=== PATIENT | female | born 1985 | race Caucasian/White ===

== ENCOUNTER 2024-10-30 10:23 | Emergency (ER) | payer OTHER, SELFPAY ==
--- NOTE | ~2024-10-30 | CT_ITS ---
History: Dizziness and headache PROCEDURE: CT head without contrast. COMPARISON: None TECHNIQUE: Axial imaging of the head performed from the skull base to the vertex without IV contrast. Sagittal a nd coronal reformations obtained. DLP: 605 mGy-cm FINDINGS: The ventricles are normal in size, shape and position. There is no mass, mass effect or midline shift. There is no abnormal extra-axial fluid collection or intracranial hemorrhage. Near-complete opacification of the bilateral maxillary sinuses. Mucoperiosteal thickening within the sphenoid sinuses. Mucoperiosteal thickening within the frontoethmoidal recess is also noted. The mastoid air cells are well aerated. No acute displaced fractures within the overlying cranium. Impression: No acute intracranial hemorrhage or suspicious mass effect. Inflammatory sinus disease Reviewed, dictated and finalized at location A. Impression: No acute intracranial hemorrhage or suspicious mass effect. Inflammatory sinus disease
--- NOTE | ~2024-10-30 | XR_ITS ---
Clinical Indication: Shortness of breath PA and lateral views of the chest: Comparison: None Findings: The lungs are clear, without evidence of focal consolidation or pleural effusion. Cardiome diastinal silhouette is within normal limits. Bones and soft tissues are unremarkable. Impression: Normal chest. Reviewed, dictated and finalized at [facility]. Impression: Normal chest.
--- NOTE | 2024-10-30 10:28 | ECG_ITS ---
Test Date: 2024-10-30 10:42:07 Measurements Intervals [place] Rate: 78 P: -5 [place]: 123 QRS: 18 QRSD: 80 T: 21 QT: 358 QTc: 410 Interpretive Statements SINUS RHYTHM No previous ECG available for comparison Electronically Signed On 11-01-2024 13:47:50 CDT by Samuel Ley D.O
[2024-10-30 10:35] VITALS: BP 170/102; PULSE 84; RESP 20; TEMP 36.6; O2SAT 100
[2024-10-30 12:31] VITALS: BP 152/100; PULSE 82; RESP 14; O2SAT 100
[2024-10-30 12:45] VITALS: PULSE 96; RESP 15; O2SAT 100
[2024-10-30 12:46] VITALS: BP 152/100; PULSE 87; RESP 24; O2SAT 100
[2024-10-30 13:00] VITALS: PULSE 85; RESP 14; O2SAT 100
[2024-10-30 13:02] VITALS: BP 140/90; PULSE 97; RESP 15; O2SAT 100
[2024-10-30 13:09] LABS: Basophils Percent Auto 0.3 % (0.2-1.2); Eosinophils Absolute Auto 0.1 K/mm3 (0-0.3); Eosinophils Percent Auto 0.7 % (0-4.4); Hematocrit 37.9 % (37.0-47.0); Hemoglobin 12.7 g/dL (12.0-15.0); Immature Granulocyte Absolute 0.02 K/mm3 (0.00-0.031); Immature Granulocyte Percent A 0.2 % (0-0.5); Lymphocytes Percent Auto 26.9 % (18.3-44.2); Mean Corpuscular HGB Conc 33.5 g/dl (32-36); Mean Corpuscular Hemoglobin 29.6 pg (26-34); Mean Corpuscular Volume 88.3 fl (80-100); Mean Platelet Volume 8.6 fl (7.4-10.4); Monocytes Absolute Auto 0.5 K/mm3 (0.1-0.6); Monocytes Percent Auto 4.7 % (2.6-8.5); Neutrophils Absolute Auto 6.7 K/mm3 (1.3-6.7); Neutrophils Percent Auto 67.2 % (45.5-73.1); Platelet Count Result 423 k/mm3 (150-375); Red Blood Count 4.29 M/mm3 (4.2-5.4); Red Cell Distribution Width 12.7 % (11.5-14.5)
[2024-10-30 13:24] LABS: Alanine Aminotransferase 17 U/L (6-35); Albumin Level 4.3 g/dL (3.5-5.1); Alkaline Phosphatase 97 U/L (38-126); Anion Gap 12 mmol/L (4-12); Aspartate Amino Transferase 19 U/L (14-36); Bilirubin,Total 0.3 mg/dL (0.2-1.3); Blood Urea Nitrogen 12 mg/dL (7-17); Carbon Dioxide 23 mmol/L (22-30); Chloride 103 mmol/L (98-107); Estimated CRCL calculation 123 ml/min; Estimated Glomerular Filt Rate > 60; Glucose 87 mg/dL (65-110); Potassium 4.1 mmol/L (3.4-5.0); Sodium 138 mmol/L (137-145)
--- NOTE | 2024-10-30 13:37 | ED_ITS ---
HPI - Recheck/Abnormal Lab/Rx General Chief Complaint: Recheck/Abnormal Lab/Rx Stated Complaint: htn, SOB, dizziness Time Seen by Provider: 10/30/24 12:44 History of Present Illness HPI narrative: 39-year-old otherwise healthy female presenting to the emergency department for evaluation of hypertension, dizziness, shortness of breath and intermittent headache. Patient states her symptoms have been going on for last 3-4 months. She went to her primary care provider referred to an oncologist for thrombocytosis as well as a moving picture producer for abnormal appearing EKG. She was started on losartan last month and then switch to metoprolol as she was still having some tachycardia with her high blood pressure. 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 Presently she is endorsing a mild headache but no nausea, vomiting, chest pain, shortness a breath. No abdominal pain or vision changes. She states that she thinks her blood pressure is causing her symptoms. Has a cardiology appointment next month. Patient did see her oncologist and currently getting workup for thrombocytosis. No history of blood clot disorder. Related Data Allergies Allergy/AdvReac Type Severity Reaction Status Date / Time No Known Allergies Allergy Verified 10/30/24 10:25 Review of Systems 2 Review of Systems: As reviewed above in HPI Exam 2 Narrative: GENERAL: [Well-appearing, well-nourished, and in no acute distress.] HEAD: [Normocephalic, atraumatic.] EYES: [PERRLA and EOMI.] ENT: Nares clear, no rhinorrhea or epistaxis. Mucous membranes moist. NECK: Supple. CHEST: [Clear to auscultation. No respiratory distress.] HEART: [Regular rate and rhythm]. No murmur heard. [Normal peripheral pulses.] ABDOMEN: [Soft, nondistended], [nontender], [No rigidity or guarding] EXTREMITIES: Normal range of motion. [No edema.] SKIN: Warm, dry, no rash. NEURO: [No focal deficits]. Alert and oriented [x3.] PSYCH: [Normal mood and affect.] Course Vital Signs Vital signs: Vital Signs Temperature 36.6 C 10/30/24 10:35 Pulse Rate 84 10/30/24 10:35 Respiratory Rate 20 10/30/24 10:35 Blood Pressure 170/102 H 10/30/24 10:35 Pulse Oximetry 100 10/30/24 10:35 Oxygen Delivery Room Air 10/30/24 10:35 Temperature 36.6 C 10/30/24 10:35 Pulse Rate 97 10/30/24 13:02 Respiratory Rate 15 10/30/24 13:02 Blood Pressure 140/90 10/30/24 13:02 Pulse Oximetry 100 10/30/24 13:02 Oxygen Delivery Room Air 10/30/24 10:35 MDM - Recheck/Abnormal Lab/Rx MDM Narrative Medical decision making narrative: 39-year-old female with history of hypertension presenting to the emergency room for evaluation of elevated blood pressure, headache, intermittent dizziness and shortness of breath for last 3-4 months. Recently switched from losartan to metoprolol for blood pressure control. Presently patient endorse a mild headache but otherwise asymptomatic. She has normal appearing vital signs without any significant blood pressure concerns, blood pressure 140/90, no tachycardia, fever or hypoxia. 2+ symmetric pulses, unremarkable neurological examination. Patient presently appears to have asymptomatic hypertension however given her historical features and intermittent headache for last few months a head CT was warranted to see if there is any kind of occult process such as stroke or bleed. Will obtain laboratory studies including CBC, CMP, EKG and chest x-ray to assess for end-organ damage. If there is no concerning features or findings patient could be safely followed up outpatient with regular primary care provider and moving picture producer. Patient's workup was reassuring. No leukocytosis or anemia. Mildly elevated platelet count which patient is already aware of. Normal renal function. Normal electrolytes, normal LFTs. Normal glucose. Chest x-ray without any findings. CT head without any acute intracranial process. EKG with no ischemia or ectopy. Patient is currently asymptomatic from hypertension and can be safely discharged home at this time. She will follow-up with her regular outpatient doctors. Medical Records Attestation: I reviewed the patient's medical records. Lab Data Attestation: I reviewed the patient's lab results. 10/30/24 12:59 10/30/24 12:59 Labs: Lab Results 10/30/24 Range/Units 12:59 WBC 10.0 (4.5-10.0) K/mm3 RBC 4.29 (4.2-5.4) M/mm3 Hgb 12.7 (12.0-15.0) g/dL Hct 37.9 (37.0-47.0) % MCV 88.3 (80-100) fl MCH 29.6 (26-34) pg MCHC 33.5 (32-36) g/dl RDW 12.7 (11.5-14.5) % Plt Count 423 H (150-375) k/mm3 MPV 8.6 (7.4-10.4) fl Immature Gran % (Auto) 0.2 (0-0.5) % Neut % (Auto) 67.2 (45.5-73.1) % Lymph % (Auto) 26.9 (18.3-44.2) % [place] % (Auto) 4.7 (2.6-8.5) % Eos % (Auto) 0.7 (0-4.4) % Baso % (Auto) 0.3 (0.2-1.2) % Lymph # (Auto) 2.70 (0.9-3.2) K/mm3 [place] # (Auto) 0.5 (0.1-0.6) K/mm3 Eos # (Auto) 0.1 (0-0.3) K/mm3 Baso # (Auto) 0.0 (0.0-0.1) K/mm3 Abs Immat Gran (auto) 0.02 (0.00-0.031) K/mm3 Absolute Neuts (auto) 6.7 (1.3-6.7) K/mm3 Absolute Nucleated RBC 0.000 (0.0-0.012) K/mm3 Nucleated RBC % 0.0 (0.0-0.2) % Sodium 138 (137-145) mmol/L Potassium 4.1 (3.4-5.0) mmol/L Chloride 103 (98-107) mmol/L Carbon Dioxide 23 (22-30) mmol/L Anion Gap 12 (4-12) mmol/L BUN 12 (7-17) mg/dL Creatinine 0.60 L (0.7-1.0) mg/dL Estim Creat Clear Calc 123 ml/min Estimated GFR > 60 (59 - ) Glucose 87 (65-110) mg/dL Calcium 9.0 (8.4-10.2) mg/dL Total Bilirubin 0.3 (0.2-1.3) mg/dL AST 19 (14-36) U/L ALT 17 (6-35) U/L Alkaline Phosphatase 97 (38-126) U/L Total Protein 8.0 (6.3-8.2) g/dL Albumin 4.3 (3.5-5.1) g/dL ECG Data EKG #1: Attestation: I personally reviewed and interpreted this ECG as follows: ECG completion date: 10/30/24 ECG completion time: 10:42 Prior ECG tracings: not available for review Interpretation: Regular rate, regular rhythm. Regular axis. QTC 410, QRS 80, [place] interval 123. Rate of 78 beats per minute. No ST segment elevations, depressions or inversions. Otherwise unremarkable appearing normal sinus rhythm EKG. No previous EKG for comparison. Discharge Plan Discharge Clinical Impression: Asymptomatic hypertension, Elevated platelet count Patient Disposition: Home, Self-Care Condition: Stable Instructions: Antibiotic Form, Hypertension (ED) Additional Instructions: Your blood pressure is not causing any signs of organ damage, your laboratory studies are all normal aside from your mildly elevated platelets of 423, not significant elevated or concerning. Head CT without any acute findings or changes. Normal electrolytes, normal EKG. Call your regular doctor for close outpatient appointment. Your medications may need to be adjusted to treat her blood pressure but no acute emergencies today. Return with any new concerns at any time. Patient Language: Armenian Follow-up/Referrals: [facility] [Primary Care Provider] - Time of Disposition: 16:20
--- OUTSIDE RECORDS SUMMARY | 2024-10-30 14:00 | XMS_ITS | Encounter Summary ---
Author Organization [facility] Healthcare Address [address] [place] [address] Care Team Providers Care Environmental Health Inspector Name Role Phone Darleen Donahue CENTRAL CONTROL ROOM OPERATOR Primary Care Provider Reason for Visit * Reason Onset Date Comments head fogginess 09/04/2024 Encounter Details Date Type Department Care Team (Late st Contact Info) Description 09/04/2024 Nurse Triage [facility] Primary Care at [address] [id number] Darleen Donahue, CENTRAL CONTROL ROOM OPERATOR [address] [place] [id number] Social History Tobacco Use Types Packs/Day Years Used Date Smoking Tobacco: Never Cigarettes Smokeless Tobacco: Never Alcohol Use Standard Drinks/Week Comments Yes 0 (1 standard drink = 0.6 oz pur e alcohol) socially AUDIT-C Answer Date Recorded Frequency of Alcohol Consumption Monthly or less 03/16/2019 Average Number of Drinks Not on file 019 Frequency of Binge Drinking Not on file 02/17 PHQ-2 Answer Date Recorded PHQ-2 Total Score (If total score is 3 or more points, staff should administer the PHQ-9) 0 07/10/2024 Comments No Sex and Gender Information Value Date Recorded Sex Assigned at Not on file Legal Sex Female 7:35 PM [employer] Gender Identity Not on file Sexual Orientation Straight 01/18/2020 8: 14 AM CDT 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 It's possible that the increase is causingthese symptoms, but the level of depression she is experiencing could also be causing these symptoms. What we could do is slow down the ramp up. I called in citalopram 10mg tablet for 14 days. Have her cut her 40mg tablet in half. That would be 20mg. Add the 10mg tablet and so she is now taking 30mg for 14 days. After that increase back to 40mg daily. Make sure she understanding to cut the 40mg in half. I had talked to her about fmla if she needs. [employer] * Telephone Encounter - Mireille Kuhn, RN - 09/04/2024 12:41 PM [employer] Pt reported feeling foggy in head, headache 3/10, cannot focus, lightheaded at times improved with eating. Pt stated she has had this feeling once in the past while on depression meds that were changed while she was in high school. Recently had a medication adjustment 2 days ago.. Denied chest pain, sob, nausea, vomiting, diarrhea, bloody stools or black stools, fever, chills, sweats, weakness, numbness, or head injury. Pt was seen in the office 2 days ago and wants above reported to PCP for next steps. Home care/call back instructions given. Pt verbalized understanding. Routed to PCP's clinical group. Reason for Disposition MILD - MODERATE headache present > 3 days (72 hours) Protocols used: [id number] [employer] * Telephone Encounter - Mireille Kuhn, RN - 09/04/2024 12:26 PM [employer] Regarding: Lightheaded, Foggy in head, cannot focus ----- Message from Arely Mclaughlin sent at 09/04/2024 12:24 PM [employer] ----- Symptom Based Call Chief Complaint(s): Lightheaded, Foggy in head, cannot focus Duration: today What type of symptom(s) is the patient experiencing? Red Flag. Is the patient concerned they are experiencing a medical emergency requiring an ambulance? No Additional Comments: Tried to eat but it didn't hep the symptoms. Does message need to be routed? Yes-Action Needed [employer] documented in this encounter Plan of Treatment Not on file documented as of this encounter Visit Diagnoses Not on filedocumented in this encounter Care Teams Environmental Health Inspector Relationship Specialty Start Date End Date Darleen Donahue NP PCP - General Family Medicine 09/25/21 documented as of this encounter
--- OUTSIDE RECORDS SUMMARY | 2024-10-30 14:00 | XMS_ITS | Clinical Summary ---
Author Organization [facility] Address [address] [place] [address] Phone Care Team Providers Care Security Intern Name Role Phone Unavailable Primary Care Provider Unavailabl e Social History Tobacco Use Types Packs/Day Years Used Date Smoking Tobacco: Never Assessed Comments Unknown Sex and Gender Information Value Date Recorded Sex Assigned at Not on file Legal Sex Female 11:25 AM CDT Gender Identity Not on file Sexual Orientation Not on file Plan of Treatment Not on file
--- OUTSIDE RECORDS SUMMARY | 2024-10-30 14:00 | XMS_ITS | Referral Summary ---
Author Organization [facility] [address] Address [address] [place] [address] Care Team Providers Care Deck Scaler Name Role Phone Darleen Donahue NP Primary Care Provider [phone] Encounters Date Type Department Care Team Description 10/30/2024 Results Follow-Up [facility] [address] [place] [address] Office [facility] [address] [place] [address] Keely Cisse RN 10/28/2024 12:30 PM CDT Lab [address] [place] [address] Thrombocytosis (Primary Dx); Other fatigue; Thrombocythemia 10/28/2024 1:00 PM CDT Office Visit [facility] [address] [place] [address] [address] Jorgito Schwartz MD Thrombocythemia (Primary Dx); Thrombocytosis; Other fatigue 10/19/2024 3:30 PM AUXILIARY OPERATOR Office Visit [facility] Primary Care at [address] [phone] Darleen Donahue NP Tachycardia (Primary Dx); Short ME-normal QRS complex syndrome; Hypertension, essential; Depression with anxiety; Thrombocythemia 10/15/2024 Telephone [facility] Primary Care at [address] [phone] Darleen Donahue NP Med Refill 10/14/2024 4:48 PM AUXILIARY OPERATOR - 10/14/2024 6:04 PM AUXILIARY OPERATOR Emergency [facility] Emergency Department [address] [place] [id number] Hypertension, unspecified type (Primary Dx) Discharge Disposition: Discharge to home or self care 10/14/2024 Nurse Triage [facility] Primary Care at [address] [phone] Darleen Donahue, PIZZA BAKER 10/12/2024 Nurse Triage [facility] Primary Care at [address] [phone] Darleen Donahue, PIZZA BAKER 10/08/2024 12:30 PM AUXILIARY OPERATOR Office Visit [facility] Primary Care at [address] [phone] Darleen Donahue NP Depression with anxiety (Primary Dx); Hypertension, essential; Thrombocytosis 09/04/2024 Nurse Triage [facility] Primary Care at [address] [phone] Darleen Donahue NP 09/02/2024 3:18 PM AUXILIARY OPERATOR - 09/02/2024 11:59 PM AUXILIARY OPERATOR Hospital Encounter [address] [address] Thyroid disorder screen; Lipid screening; Screening for metabolic disorder; Screening for deficiency anemia; Screening for diabetes mellitus Discharge Disposition: Discharge to home or self care 09/02/2024 3:15 PM AUXILIARY OPERATOR Lab [facility] Outpatient Lab at [address] [phone] Healthcare maintenance (Primary Dx); Morbid obesity with BMI of 40.0-44.9, adult (HCC) 09/02/2024 Orders Only [facility] Primary Care at [address] [phone] Darleen Donahue NP Screening for deficiency anemia (Primary Dx); Screening for metabolic disorder; Lipid screening; Thyroid disorder screen; Screening for diabetes mellitus 09/02/2024 Telephone [facility] Primary Care at [address] [phone] Darleen Donahue NP Medical Question/Miscellaneous 09/02/2024 4:00 PM AUXILIARY OPERATOR Office Visit [facility] Primary Care at [address] [phone] Darleen Donahue NP Annual physical exam (Primary Dx); Depression with anxiety; Elevated blood-pressure reading, without diagnosis of hypertension; Class 3 severe obesity due to excess calories with serious comorbidity and body mass index (BMI) of 45.0 to 49.9 in adult (HCC) 08/04/2024 Telephone [facility] [address] [place] [address] [address], [place] [address] Sandra Abarca MA Request For Order(s) from Last 3 Months Allergies No known active allergies Medications LORazepam (ATIVAN) 0.5 mg tablet Take 1 tablet (0.5 mg total) by mouth every 8 (eight) hours as needed for anxiety 30 tablet 1 4 Active norgestimate-et hinyl estradioL (Estarylla) 0.25-35 mg-mcg per tablet Take 1 tablet by mouth daily 84 tablet 3 4 Active citalopram (CeleXA) 40 mg tabletIndicatio ns:major depressive disorder Take 1 tablet (40 mg total) by mouth daily 90 tablet 1 5 Active triamcinolone (KENALOG) 0.1 % ointment Apply topically 2 (two) times a day 30 g 5 Active meclizine (ANTIVERT) 25 mg tablet Take 1 tablet (25 mg total) by mouth 3 (three) times a day as needed for dizziness 30 tablet 5 Active metoprolol XL (TOPROL-XL) 25 mg extended release tablet Take 1 tablet (25 mg total) by mouth daily 30 tablet 1 5 10/20/19 26 Active citalopram (CeleXA) 10 mg tablet Take 1 tablet (10 mg total) by mouth daily Take daily as directed per office instructions. 14 tablet 5 10/08/19 25 Discontinu ed(Therapy completed) losartan (COZAAR) 25 mg tablet Take 1 tablet (25 mg total) by mouth daily 30 tablet 11 5 10/08/19 25 Discontinu ed(Reorder ) losartan (COZAAR) 25 mg tablet Take 1 tablet (25 mg total) by mouth daily 90 tablet 1 5 10/20/19 25 Discontinu ed(Therapy completed) Active Problems Problem Noted Date Diagnosed Date Hypertension, essential 10/08/2024 Assessment & Plan (10/19/2024 5:16 PM AUXILIARY OPERATOR): ECG 12 lead Date/Time: 10/19/2024 5:13 PM Performed by: Darleen Donahue NP Authorized by: Darleen Donahue NP Comparison: not compared with previous ECG Previous ECG: no previous ECG available Rhythm: sinus rhythm Ectopy: infrequent PVCs Ectopy comments: pac Rate: tachycardic BPM: 101 QRS axis: normal ST Segments: ST segments normal T Waves: T waves normal Clinical impression: abnormal ECG Comments: Short ME syndrome Discontinue losartan. Start metoprolol xl once daily. Discussed EKG. Will refer to cardiology. She will monitor blood pressure and send me updates. Assessment & Plan (10/08/2024 1:00 PM AUXILIARY OPERATOR): Start losartan 25mg Thrombocythemia 01/31/2023 Assessment & Plan (10/19/2024 5:18 PM AUXILIARY OPERATOR): Has new patient appointment with hematology scheduled this month Assessment & Plan (01/31/2023 1:26 PM CDT): History of elevated platelets. Will repeat a CBC today. Depression with anxiety 06/30/2020 Assessment & Plan (10/19/2024 5:17 PM AUXILIARY OPERATOR): Believes this is well controlled. Continue citalopram and lorazepam prn. She may increase lorazepam short term while having a little more stress. Assessment & Plan (10/08/2024 1:00 PM AUXILIARY OPERATOR): Improved. Continue citalopram 40mg Assessment & Plan (09/06/2024 7:50 PM AUXILIARY OPERATOR): Plan was to do increase citalopram to 40 mg once daily. Patient was agreeable to plan of care. She called back 2 days later and was concerned about a couple of side effects with the increase. I gave her 10 mg of citalopram and had her cut the 40 mg tablets in half and had her increase the citalopram to 30 mg for 2 weeks and then will have her increase to 40 mg after that for a slower increase. Follow up 4-6 weeks Assessment & Plan (09/02/2023 3:41 PM AUXILIARY OPERATOR): Psychological condition is improving with treatment continue citalopram. Rarely uses lorazepam likes to keep on hand. Continue current treatment regimen. Regular aerobic exercise. Psychological condition will be reassessed 1 year . Assessment & Plan (01/31/2023 1:25 PM CDT): Depression is stable. Continue citalopram 20 mg once daily. May continue lorazepam p.r.n. anxiety. Will have her follow-up in 6 months, next August for physical Assessment & Plan (07/30/2022 6:50 PM AUXILIARY OPERATOR): Stable on current medication. Continue lorazepam prn and citalopram daily as ordered. May follow up in 6 months Assessment & Plan (01/29/2022 10:04 AM CDT): Stable on current medication. Continue citalopram as ordered. May follow up in 6 months Assessment & Plan (07/11/2021 9:45 AM AUXILIARY OPERATOR): Stable on current medication. Continue citalopram 20 mg daily and lorazepam p.r.n. as ordered. May follow up in 6 months Assessment & Plan (02/14/2021 8:52 AM CDT): Stable on current medication. Continue citalopram, lorazepam as ordered. May follow up in 6 months If sleep becomes more of an issues, then encouraged to call or come in to discuss Assessment & Plan (07/27/2020 3:21 PM AUXILIARY OPERATOR): Depression is improved. Will continue on citalopram 20 mg once daily. She has not used lorazepam but may use it p.r.n. for anxiety. Will have her follow-up in 6 months for recheck but encouraged to call in the interim if needed for any problems or concerns Assessment & Plan (07/03/2020 9:59 PM AUXILIARY OPERATOR): Discussed starting a medication and pt is agreeable. Will start Citalopram.. Discussed starting dose and titration to full dose, possible SE and time frame for expected results. Call if any suicidal thoughts or questions concerning SE. Do not abruptly stop medication without calling office. Also discussed adding lorazepam 0.5 mg b.i.d. p.r.n. for anxiety. Discussed when and how to use medications. Discussed this is a controlled substance. Follow up in 3-4 weeks for recheck and continuation of medications. Annual physical exam 06/30/2020 Assessment & Plan (09/06/2024 7:51 PM AUXILIARY OPERATOR): -Recommended: Healthy, prudent diet. Avoiding junk food/fast food. -30 minutes of exercise most days of the week. Increase to 45 minutes for weight loss. 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 , alternative cologuard not indicated -Influenza vaccine every year up to date and documented Up to date, see immunization history -F/u in 1 year for Annual PE or sooner if needed -Labs as ordered Assessment & Plan (09/02/2023 3:40 PM AUXILIARY OPERATOR): -Recommended: Healthy, prudent diet. Avoiding junk food/fast food. -30 minutes of exercise most days of the week. Increase to 45 minutes for weight loss. 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 , alternative cologuard not indicated -Influenza vaccine every year up to date and documented Up to date, see immunization history -F/u in 1 year for Annual PE or sooner if needed -Labs as ordered Assessment & Plan (07/30/2022 6:49 PM AUXILIARY OPERATOR): Patient Counseling: --Nutrition: Stressed importance of moderation in sodium/caffeine intake, saturated fat and cholesterol, caloric balance, sufficient intake of fresh fruits, vegetables, --Exercise: Stressed the importance of regular exercise. --Continue routine dental and vision visits --Immunizations reviewed and offered - utd -Routine labs/ screenings ordered- ordered. Assessment & Plan (07/11/2021 9:45 AM AUXILIARY OPERATOR): -Recommended: Healthy diet. Avoiding junk food/fast food. -30 minutes of exercise most days of the week. Increase to 45 minutes for weight loss. Immunizations: Up to date getting COVID booster later today increase physical activity, bring BP log to office visit, continue present plan, routine labs ordered, call if any problems Follow-up in 6 months. Assessment & Plan (07/03/2020 9:59 PM AUXILIARY OPERATOR): Labs as ordered. Will have her follow-up in 1 month Class 3 severe obesity due t o excess calories with serious comorbidity and body mass index (BMI) of 45.0 to 49.9 in adult 03/16/2019 Assessment & Plan (09/06/2024 7:50 PM AUXILIARY OPERATOR): BMI Follow-up includes: nutrition counseling and exercise counseling. Assessment & Plan (09/02/2023 3:40 PM AUXILIARY OPERATOR): Has started exercising again. BMI Follow-up includes: exercise counseling. Assessment & Plan (01/31/2023 1:26 PM CDT): BMI Follow-up includes: exercise counseling. Assessment & Plan (07/30/2022 6:50 PM AUXILIARY OPERATOR): BMI Follow-up includes: exercise counseling. Assessment & Plan (01/29/2022 10:04 AM CDT): BMI Follow-up includes: exercise counseling. Assessment & Plan (07/03/2020 9:59 PM AUXILIARY OPERATOR): BMI Follow-up includes: exercise counseling. Assessment & Plan (03/16/2019 9:14 PM CDT): Unchanged. Encouraged patient to decrease weight, increase daily exercise, and modify diet. Resolved Problems Problem Noted Date Diagnosed Date Resolved Date Elevated blood-pressure read ing, without diagnosis of hypertension 09/02/2024 10/19/2024 Assessment & Plan (09/06/2024 7:49 PM AUXILIARY OPERATOR): I asked her to monitor blood pressure outside of the office. We are going to have her return in 1 month for med recheck and will recheck blood pressure at that time as well Immunizations Immunization Administration Dates Next Due Influenza, Quadrivalent, Spl it, Preservative Free, Intramuscular 05/13/2023,07/19/2022 Influenza, Trivalent, Cell Culture-based MDCK, Preservative Free, Antibiotic Free, Intramuscular 08/09/2024 Influenza, Trivalent, IM (MDV) 06/23/2021 Influenza, Unspecified 05/13/2023,2020,06/30/2020(Defer red: Patient Refused) Moderna SARS-CoV-2 Monovalen t Vaccination (12+ YRS) 10/07/2020,09/08/2020 PPD TEST 07/21/2018 Pfizer SARS-CoV-2 Monovalent Vaccination (12+ Yrs) PURPLE 07/11/2021 Tdap 04/04/2014 Social History Tobacco Use Types Packs/Day Years Used Date Smoking Tobacco: Never Smokeless Tobacco: Never Tobacco Cessation:Counseling Given: Not Answered Alcohol Use Standard Drinks/Week Comments Yes 0 [...] staff should administer the PHQ-9) 0 07/10/2024 Personal Safety Answer Date Recorded Have you ever been in or are you currently in a harmful physical or emotional relationship or is someone making you feel afraid or unsafe? 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 Not on file Not on file Not on fi le Last Filed Vital Signs Vital Sign Reading Time Taken Comments Blood Pressure 140/82 10/28/2024 12:38 PM CDT Pulse 77 10/28/2024 12:38 PM CDT Temperature 36.3 C (97.3 F) 10/28/2024 12:38 PM CDT Respiratory Rate 20 10/28/2024 12:3 8 PM CDT Oxygen Saturation 96% 10/28/2024 12: 38 PM CDT Inhaled Oxygen Concentration - - Weight 109.2 kg (240 lb 12.8 oz) 2024 12:38 PM CDT Height 154.9 cm (5' 1 ) 10/28/2024 12:3 8 PM CDT Body Mass Index 45.5 10/28/2024 12:38 PM CDT Plan of Treatment Not on file Procedures Procedure Name Priority Date/Time Associated Diagnosis Comments ERYTHROCYTE SEDIMENTATION RATE Routine 10/28/2024 12:20 PM CDT Thrombocythemia Thrombocytosis Other fatigue FERRITIN Routine 10/28/2024 12:20 PM CDT Thrombocytosis Other fatigue IRON PROFILE W/ IBC Routine 10/28/2024 1 2:20 PM CDT Thrombocytosis Other fatigue CRP (ACUTE PHASE) Routine 10/28/2024 12: 20 PM CDT Thrombocytosis Other fatigue DIFFERENTIAL AUTO Routine 10/28/2024 12: 20 PM CDT Thrombocytosis CBC WITH AUTO DIFFERENTIAL Routine 10/28/2024 12:20 PM CDT Thrombocytosis ECG 12-LEAD Routine 10/19/2024 5:13 PM AUXILIARY OPERATOR Tachycardia CT HEAD WO CONTRAST ED 10/14/2024 2 :56 PM AUXILIARY OPERATOR EGFR STAT 10/14/2024 11:56 AM AUXILIARY OPERATOR DIFFERENTIAL AUTO STAT 10/14/2024 11: 56 AM AUXILIARY OPERATOR COMPREHENSIVE METABOLIC PANEL STAT 10/14/2024 11:56 AM AUXILIARY OPERATOR CBC WITH AUTO DIFFERENTIAL STAT 10/14/2024 11:56 AM AUXILIARY OPERATOR EGFR Routine 09/02/2024 3:18 PM AUXILIARY OPERATOR Screening for metabolic disorder DIFFERENTIAL AUTO Routine 09/02/2024 3:1 8 PM AUXILIARY OPERATOR Screening for deficiency anemia HEMOGLOBIN A1C Routine 09/02/2024 3:18 PM AUXILIARY OPERATOR Screening for diabetes mellitus CBC WITH AUTO DIFFERENTIAL Routine 09/02/2024 3:18 PM AUXILIARY OPERATOR Screening for deficiency anemia COMPREHENSIVE METABOLIC PANEL Routine 09/02/2024 3:18 PM AUXILIARY OPERATOR Screening for metabolic disorder LIPID PANEL Routine 09/02/2024 3:18 PM AUXILIARY OPERATOR Lipid screening THYROID FUNCTION CASCADE Routine 09/02/2024 3:18 PM AUXILIARY OPERATOR Thyroid disorder screen PAP AND HPV, REFLEX TO HPV GENOTYPES Routine 07/10/2024 3:52 PM AUXILIARY OPERATOR Well woman exam from Last 3 Months or Most Recently Relevant to Health Maintenance Results * Differential, auto (10/28/2024 12:20 PM CDT) Neutrophil abs 5.1 1.5 - 6.5 K/cumm Comment:Testing performed by : [facility] [address], Medical Office [facility] [address], [place] [address] Imm gran abs 0.0 0.0 - 0.1 K/cumm [facility]) Comment:Testing performed by : [facility] [address], Medical Office [facility] [address], [place] [address] Lymphocyte abs 2.4 0.8 - 3.3 K/cumm [facility] ([place]) Comment:Testing performed by : [facility] [address], Medical Office [facility] [address], [place] [address] Monocyte abs 0.4 0.2 - 0.8 K/cumm [facility] ([place]) Comment:Testing performed by : [facility] [address], Medical Office [facility] [address], [place] [address] Eosinophil abs 0.1 0.0 - 0.5 K/cumm [facility] ([place]) Comment:Testing performed by : [facility] [address], Medical Office [facility] [address], [place] [address] Basophil abs 0.0 0.0 - 0.1 K/cumm [facility] ([place]) Comment:Testing performed by : [facility] [address], Medical Office [facility] [address], [place] [address] Neutrophil pct 63.4 % [facility] ([place]) Comment: Interpretive Data Percent cell count reference ranges are not reported, since discordance with absolute values may lead to misinterpretation of CBC data. Current Interpretive Data was last revised on 2022. Testing performed by: [facility] [address], Medical Office [facility] [address], [place] [address] Imm gran pct 0.1 % [facility] ([place]) Comment: Interpretive Data Percent cell count reference ranges are not reported, since discordance with absolute values may lead to misinterpretation of CBC data. Current Interpretive Data was last revised on 2022. Testing performed by: [facility] [address], Medical Office [address], [place] [address] Lymphocyte pct 29.9 % [facility] ([place]) Comment: Interpretive Data Percent cell count reference ranges are not reported, since discordance with absolute values may lead to misinterpretation of CBC data. Current Interpretive Data was last revised on 2022. Testing performed by: [facility] [address], Medical Office [address], [place] [address] Monocyte pct 5.5 % [facility] ([place]) Comment: Interpretive Data Percent cell count reference ranges are not reported, since discordance with absolute values may lead to misinterpretation of CBC data. Current Interpretive Data was last revised on 2022. Testing performed by: [facility] [address], Medical Office [facility] [address], [place] [address] Eosinophil pct 0.9 % [facility] ([place]) Comment: Interpretive Data Percent cell count reference ranges are not reported, since discordance with absolute values may lead to misinterpretation of CBC data. Current Interpretive Data was last revised on 2022. Testing performed by: [facility] [address], Medical Office [address], [place] [address] Basophil pct 0.2 % [facility] ([place]) Comment: Interpretive Data Percent cell count reference ranges are not reported, since discordance with absolute values may lead to misinterpretation of CBC data. Current Interpretive Data was last revised on 2022. Testing performed by: [facility] [address], Medical Office [address], [place] [address] Blood 10/28/2024 12:2 0 PM CDT 10/28/2024 12:25 PM CDT us Jorgito Schwartz MD LAB BLOOD ORDERABLES Final Re sult [facility] ([place]) [address] [facility] [place] [address] * (ABNORMAL) Iron profile w/ IBC (10/28/2024 12:20 PM CDT) Pathologist [facility] Iron 149(H) 35 - 145 mcg/dL Comment:Testing performed by : [facility], [facility], [place], [address] TIBC 450(H) 250 - 400 mcg/dL [facility] SMITH ([place]) Comment:Testing performed by : [facility], [facility], [place], [address] Transferrin saturation 33 20 - 50 % [facility] ([place]) Comment:Testing performed by : [facility], [facility], [place], [address] Blood 10/28/2024 12:2 0 PM CDT 10/28/2024 3:14 PM CDT Jorg[place] Schwartz MD LAB BLOOD ORDERABLES Final Re sult [facility] SARAH ([place]) [address] [facility] Department [place] [address] * (ABNORMAL) CBC with auto differential (10/28/2024 12:20 PM CDT) [facility] WBC 8.1 3.8 - 9.9 K/cumm Comment:Testing performed by : [facility] [address], Medical Office [address], [place] [address] Hgb 12.6 11.9 - 15.5 g/dL [facility] SM[facility] ([place]) Comment:Testing performed by : [facility] [address], Medical Office [address], [place] [address] Hct 37.3 35.6 - 45.5 % [facility] ([place]) Comment:Testing performed by : [facility] [address], Medical Office [address], [place] [address] Plt 429(H) 150 - 400 K/cumm [facility] SM[facility] ([place]) Comment:Testing performed by : [facility] [address], Medical Office [address], [place] [address] MPV 8.6(L) 9.1 - 12.3 fL [facility] ([place]) Comment:Testing performed by : [facility] [address], Medical Office [facility] [address], [place] [address] RBC 4.27 3.90 - 5.20 M/cumm [facility] ([place]) Comment:Testing performed by : [facility] [address], Medical Office [facility] [address], [place] [address] MCV 87.4 81.3 - 96.4 fL [facility] ([place]) Comment:Testing performed by : [facility] [address], Medical Office [facility] [address], [place] [address] MCH 29.5 27.1 - 33.3 pg [facility] ([place]) Comment:Testing performed by : [facility] [address], Medical Office [facility] [address], [place] [address] MCHC 33.8 32.3 - 35.7 g/dL [facility] ([place]) Comment:Testing performed by : [facility] [address], Medical Office [facility] [address], [place] [address] RDW CV 12.6 11.1 - 14.9 % [facility] ([place]) Comment:Testing performed by : [facility] [address], Medical Office [facility] [address], [place] [address] RDW SD 40.4 35.7 - 48.1 fL [facility] ([place]) Comment:Testing performed by : [facility] [address], Medical Office [facility] [address], [place] [address] NRBC abs Not Measured 0.00 - 0.01 K/cumm [facility] ([place]) Comment:Testing performed by : [facility] [address], Medical Office [facility] [address], [place] [address] Blood 10/28/2024 12:2 0 PM CDT 10/28/2024 12:25 PM CDT Jorg[place] Schwartz MD LAB BLOOD ORDERABLES Final Re sult [facility] ([place]) [address] [facility] [place] [address] * (ABNORMAL) Erythrocyte sedimentation rate (10/28/2024 12:20 PM CDT) Erythrocyte sedimentation rate 33(H) 1 - 20 mm/hr Comment:Testing performed by : [place], [address] Blood 10/28/2024 12:2 0 PM CDT 10/28/2024 3:27 PM CDT Jorgito Schwartz MD LAB BLOOD ORDERABLES Final Re sult [facility] ([place]) [address] [place] [address] Department [place] [address] * (ABNORMAL) CRP (acute phase) (10/28/2024 12:20 PM CDT) CRP 15.1(H) <=10.0 mg/L Comment:Testing performed by : [place], [address] Blood 10/28/2024 12:2 0 PM CDT 10/28/2024 3:14 PM CDT Jorgito Schwartz MD LAB BLOOD ORDERABLES Final Re sult [facility] ([place]) [address] [place] [address] Department [place] [address] * Ferritin (10/28/2024 12:20 PM CDT) Ferritin 49 15 - 150 ng/mL Comment:Testing performed by : [place], [address] Blood 10/28/2024 12:2 0 PM CDT 10/28/2024 3:14 PM CDT Jorgito Schwartz MD LAB BLOOD ORDERABLES Final Re sult [facility] [place] [address] [facility] [place] [address] * (ABNORMAL) ECG 12-LEAD (10/19/2024 5:13 PM AUXILIARY OPERATOR) Narrative Darleen Donahue NP - 10/19/2024 5:13 PM AUXILIARY OPERATOR Darleen Donahue NP 10/19/2024 5:19 PM ECG 12 lead Date/Time: 10/19/2024 5:13 PM Performed by: Darleen Donahue NP Authorized by: Darleen Donahue NP Comparison: not compared with previous ECG Previous ECG: no previous ECG available Rhythm: sinus rhythm Ectopy: infrequent PVCs Ectopy comments: pac Rate: tachycardic BPM: 101 QRS axis: normal ST Segments: ST segments normal T Waves: T waves normal Clinical impression: abnormal ECG Comments: Short ME syndrome us Darleen Donahue NP ECG ORDERABLES Edited Result - Final * CT Head WO Contrast (10/14/2024 2:56 PM AUXILIARY OPERATOR) Anatomical Region Laterality Modality Head and Neck N/A Computed Tomogra phy 10/14/2024 3:15 PM AUXILIARY OPERATOR Narrative 10/14/2024 3:16 PM AUXILIARY OPERATOR EXAM DESCRIPTION: CT HEAD WO CONTRAST REASON FOR STUDY: Headache, sudden, severe Headache and hypertension today TECHNIQUE: Axial images acquired through the brain without intravenous contrast. Images stored on PACS. Automated mA/kV exposure control was utilized and patient examination was performed in strict accordance with principles of ALARA. COMPARISON: None FINDINGS: BRAIN: No acute intracranial hemorrhage or evidence of acute infarct. No mass effect. EXTRA-AXIAL SPACES: No fluid collections. No masses. CALVARIUM: No acute fracture. SINUSES/MASTOIDS: No air-fluid levels or mucosal thickening. ORBITS: No significant abnormality. OTHER: No other acute findings. IMPRESSION: No acute intracranial abnormality. THIS IS AN ELECTRONICALLY VERIFIED FINAL REPORT 10/14/2024 3:16 PM - Electronically signed by Cristobal Eaton M.D. JR: Report ID: [id number] Reading Location: [id number] Procedure Note Cristobal Eaton MD - 10/14/2024 EXAM DESCRIPTION: CT HEAD WO CONTRAST REASON FOR STUDY: Headache, sudden, severe Headache and hypertension today TECHNIQUE: Axial images acquired through the brain without intravenous contrast. Images stored on PACS. Automated mA/kV exposure control was utilized and patient examination was performed in strict accordance with principles of ALARA. COMPARISON: None FINDINGS: BRAIN: No acute intracranial hemorrhage or evidence of acute infarct. No mass effect. EXTRA-AXIAL SPACES: No fluid collections. No masses. CALVARIUM: No acute fracture. SINUSES/MASTOIDS: No air-fluid levels or mucosal thickening. ORBITS: No significant abnormality. OTHER: No other acute findings. IMPRESSION: No acute intracranial abnormality. THIS IS AN ELECTRONICALLY VERIFIED FINAL REPORT 10/14/2024 3:16 PM - Electronically signed by Cristobal Eaton M.D. JR: Report ID: [id number] Reading Location: [id number] Samantha ARANGO [facility] [place] Final Result * eGFR (10/14/2024 11:56 AM AUXILIARY OPERATOR) eGFR >90 >=60 mL/min/1. 73 m2 Comment: Interpretive Data Reference Interval Normal >/= 90 mL/min/1.73m2 Mildly decreased* 60 - 89 mL/min/1.73m2 Mildly to moderately decreased 45 - 59 mL/min/1.73m2 Moderately to severely decreased 30 - 44 mL/min/1.73m2 Severely decreased 15 - 29 mL/min/1.73m2 Kidney Failure < 15 mL/min/1.73m2 *Relative to young adult level Estimated glomerular filtration rate is determined by the 2020 CKD-EPI equation recommended by the National Kidney Foundation (A Unifying Approach to GFR Estimation: Recommendations of the NKF-ASK Task Force on Reassessing the Inclusion of Race in Diagnosing Kidney Disease, JASN 2020). The CKD-EPI equation should not be used for patients with unstable renal function and has not been validated in children and those over 70. Current interpretive data was last reviewed 2021. Blood 10/14/2024 11:5 6 AM AUXILIARY OPERATOR 10/14/2024 12:08 PM AUXILIARY OPERATOR Carley Joshua MD LAB BLOOD ORDERABLES Diana healy Result [facility] ([place] [address] [facility] Department [place] [address] * (ABNORMAL) Differential, auto (10/14/2024 11:56 AM AUXILIARY OPERATOR) Neutrophil abs 8.1(H) 1.5 - 6.5 K/cumm Imm gran abs 0.0 0.0 - 0.1 K/cumm [facility] ([facility]) Lymphocyte abs 2.4 0.8 - 3.3 K/cumm [facility] ([place] Monocyte abs 0.9(H) 0.2 - 0.8 K/cumm [facility] Eosinophil abs 0.1 0.0 - 0.5 K/cumm [facility] Basophil abs 0.0 0.0 - 0.1 K/cumm [facility] Neutrophil pct 70.3 % [facility]) Comment: Interpretive Data Percent cell count reference ranges are not reported, since discordance with absolute values may lead to misinterpretation of CBC data. Current Interpretive Data was last revised on 2017. Imm gran pct 0.3 % [facility] Comment: Interpretive Data Percent cell count reference ranges are not reported, since discordance with absolute values may lead to misinterpretation of CBC data. Current Interpretive Data was last revised on 2017. Lymphocyte pct 20.5 % [facility] Comment: Interpretive Data Percent cell count reference ranges are not reported, since discordance with absolute values may lead to misinterpretation of CBC data. Current Interpretive Data was last revised on 2017. Monocyte pct 7.8 % [facility] Comment: Interpretive Data Percent cell count reference ranges are not reported, since discordance with absolute values may lead to misinterpretation of CBC data. Current Interpretive Data was last revised on 2017. Eosinophil pct 0.8 % [facility] Comment: Interpretive Data Percent cell count reference ranges are not reported, since discordance with absolute values may lead to misinterpretation of CBC data. Current Interpretive Data was last revised on 2017. Basophil pct 0.3 % [facility] Comment: Interpretive Data Percent cell count reference ranges are not reported, since discordance with absolute values may lead to misinterpretation of CBC data. Current Interpretive Data was last revised on 2017. Blood 10/14/2024 11:5 6 AM AUXILIARY OPERATOR 10/14/2024 12:08 PM AUXILIARY OPERATOR us Carley Joshua MD LAB BLOOD ORDERABLES Diana l Result [facility] [address] [facility] Department [place] [address] * (ABNORMAL) CBC with auto differential (10/14/2024 11:56 AM AUXILIARY OPERATOR) WBC 11.5(H) 3.8 - 9.9 K/cumm Hgb 12.9 11.9 - 15.5 g/dL [facility] Hct 38.7 35.6 - 45.5 % [facility] Plt 429(H) 150 - 400 K/cumm [facility] MPV 8.5(L) 9.1 - 12.3 fL [facility] RBC 4.38 3.90 - 5.20 M/cumm [facility]) MCV 88.4 81.3 - 96.4 fL [facility] MCH 29.5 27.1 - 33.3 pg [facility] MCHC 33.3 32.3 - 35.7 g/dL [facility] RDW CV 13.0 11.1 - 14.9 % [facility] RDW SD 41.9 35.7 - 48.1 fL [facility] NRBC abs 0.00 0.00 - 0.01 K/cumm [facility] Blood 10/14/2024 11:5 6 AM AUXILIARY OPERATOR 10/14/2024 12:08 PM AUXILIARY OPERATOR Carley Joshua MD LAB BLOOD ORDERABLES Diana monet Result [facility] [address] [facility] Department [place] [address] * (ABNORMAL) Comprehensive metabolic panel (10/14/2024 11:56 AM AUXILIARY OPERATOR) Sodium 136 135 - 145 mmol/L Potassium, pl 4.0 3.3 - 4.9 mmol/L [facility] Chloride 103 97 - 110 mmol/L [facility] CO2 25 22 - 32 mmol/L [facility] Anion gap 8 2 - 15 mmol/L [facility] BUN 9 6 - 25 mg/dL [facility] Creatinine 0.57(L) 0.60 - 1.10 mg/dL [facility] Glucose 95 70 - 199 mg/dL [facility] Comment: Interpretive Data Fasting glucose >/= 126 mg/dl is diagnostic for diabetes. Fasting is defined as no caloric intake for at least 8 hours. Fasting glucose between 100 mg/dl to 125 mg/dl is diagnostic of prediabetes. In a patient with classic symptoms of hyperglycemia or hyperglycemic crisis, a random glucose >/= 200 mg/dl is diagnostic for diabetes. In the absence of unequivocal hyperglycemia, results should be confirmed by repeat testing. The classification and Diagnosis of Diabetes Diabetes Care 202; 46: S19-S40. Current interpretive data was last revised 2022. Calcium 9.1 8.5 - 10.3 mg/dL [facility] Bilirubin, total <0.2 0.1 - 1.2 mg/dL [facility] Protein, pl 7.3 6.5 - 8.5 g/dL [facility] Albumin 4.0 3.5 - 5.0 g/dL [facility] Alk phos 93 40 - 130 Units/L [facility] ALT 11 7 - 45 Units/L [facility] AST 15 10 - 45 Units/L [facility] Comment:Slightly Hemolyzed S pecimen Blood 10/14/2024 11:5 6 AM AUXILIARY OPERATOR 10/14/2024 12:08 PM AUXILIARY OPERATOR Carley Joshua MD LAB BLOOD ORDERABLES Diana l Result [facility] ([place]) 1 [facility] [place] [address] * eGFR (09/02/2024 3:18 PM AUXILIARY OPERATOR) eGFR >90 >=60 mL/min/1. 73 m2 Comment: Interpretive Data Reference Interval Normal >/= 90 mL/min/1.73m2 Mildly decreased* 60 - 89 mL/min/1.73m2 Mildly to moderately decreased 45 - 59 mL/min/1.73m2 Moderately to severely decreased 30 - 44 mL/min/1.73m2 Severely decreased 15 - 29 mL/min/1.73m2 Kidney Failure < 15 mL/min/1.73m2 *Relative to young adult level Estimated glomerular filtration rate is determined by the 2020 CKD-EPI equation recommended by the National Kidney Foundation (A Unifying Approach to GFR Estimation: Recommendations of the NKF-ASK Task Force on Reassessing the Inclusion of Race in Diagnosing Kidney Disease, JASN 2020). The CKD-EPI equation should not be used for patients with unstable renal function and has not been validated in children and those over 70. Current interpretive data was last reviewed 2021. Blood 09/02/2024 3:18 PM AUXILIARY OPERATOR 09/02/2024 9:49 PM AUXILIARY OPERATOR Darleen Donahue NP LAB BLOOD ORDERABLES Final Re sult [facility] [address] Department [place] [address] * Differential, auto (09/02/2024 3:18 PM AUXILIARY OPERATOR) Neutrophil abs 5.7 1.5 - 6.5 K/cumm Imm gran abs 0.0 0.0 - 0.1 K/cumm [facility] Lymphocyte abs 2.5 0.8 - 3.3 K/cumm [facility] Monocyte abs 0.8 0.2 - 0.8 K/cumm [facility] Eosinophil abs 0.1 0.0 - 0.5 K/cumm [facility] Basophil abs 0.0 0.0 - 0.1 K/cumm [facility] Neutrophil pct 62.7 % [facility] Comment: Interpretive Data Percent cell count reference ranges are not reported, since discordance with absolute values may lead to misinterpretation of CBC data. Current Interpretive Data was last revised on 2017. Imm gran pct 0.3 % [facility] Comment: Interpretive Data Percent cell count reference ranges are not reported, since discordance with absolute values may lead to misinterpretation of CBC data. Current Interpretive Data was last revised on 2017. Lymphocyte pct 27.4 % [facility] Comment: Interpretive Data Percent cell count reference ranges are not reported, since discordance with absolute values may lead to misinterpretation of CBC data. Current Interpretive Data was last revised on 2017. Monocyte pct 8.4 % [facility] Comment: Interpretive Data Percent cell count reference ranges are not reported, since discordance with absolute values may lead to misinterpretation of CBC data. Current Interpretive Data was last revised on 2017. Eosinophil pct 1.0 % [facility] Comment: Interpretive Data Percent cell count reference ranges are not reported, since discordance with absolute values may lead to misinterpretation of CBC data. Current Interpretive Data was last revised on 2017. Basophil pct 0.2 % [facility] Comment: Interpretive Data Percent cell count reference ranges are not reported, since discordance with absolute values may lead to misinterpretation of CBC data. Current Interpretive Data was last revised on 2017. Blood 09/02/2024 3:18 PM AUXILIARY OPERATOR 09/02/2024 8:00 PM AUXILIARY OPERATOR Darleen Donahue NP LAB BLOOD ORDERABLES Final Re sult Performing Organization Address City/[facility]/ZIP Co de Phone Number [facility] [address] [facility] [place] [address] * Thyroid Function [place] (09/02/2024 3:18 PM AUXILIARY OPERATOR) TSH 2.07 0.30 - 4.20 mcIUnit/mL Blood 09/02/2024 3:18 PM AUXILIARY OPERATOR 09/02/2024 8:00 PM AUXILIARY OPERATOR Darleen Donahue NP LAB BLOOD ORDERABLES Final Re sult Performing Organization Address [facility] de Phone Number [facility] [address] [facility] [place] [address] * (ABNORMAL) CBC with auto differential (09/02/2024 3:18 PM AUXILIARY OPERATOR) Pathologist [facility] WBC 9.0 3.8 - 9.9 K/cumm Hgb 12.7 11.9 - 15.5 g/dL [facility] Hct 38.7 35.6 - 45.5 % [facility] Plt 465(H) 150 - 400 K/cumm [facility] MPV 9.2 9.1 - 12.3 fL [facility] RBC 4.31 3.90 - 5.20 M/cumm [facility] MCV 89.8 81.3 - 96.4 fL [facility] MCH 29.5 27.1 - 33.3 pg [facility] MCHC 32.8 32.3 - 35.7 g/dL [facility] RDW CV 13.1 11.1 - 14.9 % [facility] RDW SD 43.1 35.7 - 48.1 fL [facility] NRBC abs 0.00 0.00 - 0.01 K/cumm [facility] Blood 09/02/2024 3:18 PM AUXILIARY OPERATOR 09/02/2024 8:00 PM AUXILIARY OPERATOR Darleen A. Donahue [employer] LAB BLOOD ORDERABLES Final Re sult Performing Organization Address [facility] Co de Phone Number [facility] [phone] [address] Department of Laboratories [place], [place] [id number] * Hemoglobin A1c (09/02/2024 3:18 PM AUXILIARY OPERATOR) [facility] Hgb A1C 5.6 4.0 - 5.6 % Comment:Testing performed by : [facility], [address] [place] [address]., [id number] Estimated Average Glucose 114 mg/dL [facility] Comment: The ADA recommends reporting an estimated Average Glucose (eAG) with all Hemoglobin A1c results using the equation derived from a study of 507 normal and diabetic adults. Minority populations were underrepresented and children were not included. (Diabetes Care 2020; 43(S1): S66-S76). The eAG is not equivalent to a fasting glucose. Testing performed by: [facility], [address] [place] [address]., [address] Blood 09/02/2024 3:18 PM AUXILIARY OPERATOR 09/02/2024 8:00 PM AUXILIARY OPERATOR Darleen Donahue [employer] LAB BLOOD ORDERABLES Final Re sult Performing Organization Address [facility] Co de Phone Number [facility] [phone] [address] [place] [address] * (ABNORMAL) Lipid panel (09/02/2024 3:18 PM AUXILIARY OPERATOR) [facility] Cholesterol 159 30 - 199 mg/dL Comment: Interpretive Data Ages < or = 19 years Acceptable: <170 mg/dL Borderline high: 170-199 mg/dL High: >or= 200 mg/dL Ages > or = 20 years Desirable: <200 mg/dL Borderline high: 200-239 mg/dL High: >or= 240 mg/dL Literature References: 1. Expert Panel on Integrated Guidelines for Cardiovascular Health and Risk Reduction in Children and Adolescents. Pediatrics 2011;128:S213 2. NCEP Expert Panel. Circulation 2004;110:227 Current Interpretive Data was last revised on 2018. Triglycerides 190(H) <=149 mg/dL [facility] Comment: Interpretive Data Ages < or = 9 years Acceptable: <75 mg/dL Borderline high: 75-99 mg/dL High: >or= 100 mg/dL Ages 10 to 20 years Acceptable: <90 mg/dL Borderline high: 90-129 mg/dL High: >or= 130 mg/dL Ages > or = 20 years Desirable: <150 mg/dL Borderline high: 150-199 mg/dL High: 200-499 mg/dL Very high: >or= 499 mg/dL Literature References: 1. Expert Panel on Integrated Guidelines for Cardiovascular Health and Risk Reduction in Children and Adolescents. Pediatrics 2011;128:S213 2. NCEP Expert Panel. Circulation 2004;110:227 Current Interpretive Data was last revised on 2018. HDL 63 >=40 mg/dL [facility] Comment: Interpretive Data Ages < or = 19 years Acceptable: >45 mg/dL Borderline low: 40-45 mg/dL Low: <40 mg/dL Ages > or = 20 years Desirable: >or= 60 mg/dL Low: <40 mg/dL Literature References: 1. Expert Panel on Integrated Guidelines for Cardiovascular Health and Risk Reduction in Children and Adolescents. Pediatrics 2011;128:S213 2. NCEP Expert Panel. Circulation 2004;110:227 Current Interpretive Data was last revised on 2018. LDL, calculated 65 <=129 mg/dL [facility] Comment: Interpretive Data Ages < or = 19 years Acceptable: <110 mg/dL Borderline high: 110-129 mg/dL High: >or= 130 mg/dL Ages > or = 20 years Optimal: <100 mg/dL Near optimal: 100-129 mg/dL Borderline high: 130-159 mg/dL High: >160 mg/dL Calculated using the Adriano LDL-C estimating equation. This equation was implemented on 2024. Prior to this date LDL-C was estimated using the Friedewald equation. Literature References: 1. Expert Panel on Integrated Guidelines for Cardiovascular Health and Risk Reduction in Children and Adolescents. Pediatrics 2011;128:S213 2. NCEP Expert Panel. Circulation 2004;110:227 3. Adriano Salamanca al. ALICE Cardiol. 2019December 17;5(5):540-548. doi: 10.1001/jamacardio.2020.0013 Current Interpretive Data was last revised on 2024. Non-HDL Cholesterol 96 mg/dL [facility] Comment: Interpretive Data Ages < or = 19 years Acceptable: <120 mg/dL Borderline high: 120-144 mg/dL High: >145 mg/dL Ages > or = 20 years When triglycerides are >200 mg/dL, Non-HDL cholesterol is a secondary target of therapy with treatment goals that are 30 mg/dL greater than the LDL cholesterol target. Literature References: 1. Expert Panel on Integrated Guidelines for Cardiovascular Health and Risk Reduction in Children and Adolescents. Pediatrics 2011;128:S213 2. NCEP Expert Panel. Circulation 2004;110:227 Current Interpretive Data was last revised on 2018. Chol/HDL ratio 3 [facility] Blood 09/02/2024 3:18 PM AUXILIARY OPERATOR 09/02/2024 8:00 PM AUXILIARY OPERATOR Darleen Donahue NP LAB BLOOD ORDERABLES Final Re sult [facility] [address] [address] Department [place] [address] * Comprehensive metabolic panel (09/02/2024 3:18 PM AUXILIARY OPERATOR) Sodium 140 135 - 145 mmol/L Potassium, pl 3.9 3.3 - 4.9 mmol/L [facility] Chloride 103 97 - 110 mmol/L [facility] CO2 24 22 - 32 mmol/L [facility] Anion gap 13 2 - 15 mmol/L [facility] BUN 11 6 - 25 mg/dL [facility] Creatinine 0.67 0.60 - 1.10 mg/dL [facility] Glucose 122 70 - 199 mg/dL [facility] Comment: Interpretive Data Fasting glucose >/= 126 mg/dl is diagnostic for diabetes. Fasting is defined as no caloric intake for at least 8 hours. Fasting glucose between 100 mg/dl to 125 mg/dl is diagnostic of prediabetes. In a patient with classic symptoms of hyperglycemia or hyperglycemic crisis, a random glucose >/= 200 mg/dl is diagnostic for diabetes. In the absence of unequivocal hyperglycemia, results should be confirmed by repeat testing. The classification and Diagnosis of Diabetes Diabetes Care 2021; 46: S19-S40. Current interpretive data was last revised 2022. Calcium 9.4 8.5 - 10.3 mg/dL [facility] Bilirubin, total <0.2 0.1 - 1.2 mg/dL [facility] Protein, pl 7.2 6.5 - 8.5 g/dL [facility] Albumin 4.1 3.5 - 5.0 g/dL [facility] Alk phos 95 40 - 130 Units/L [facility] ALT 15 7 - 45 Units/L [facility] AST 18 10 - 45 Units/L [facility] Blood 09/02/2024 3:18 PM AUXILIARY OPERATOR 09/02/2024 8:00 PM AUXILIARY OPERATOR us Darleen Donahue NP LAB BLOOD ORDERABLES Final Re sult [facility] [address] [address] Department [place] [address] * Pap and HPV, reflex to HPV Genotypes (07/10/2024 3:52 PM AUXILIARY OPERATOR) Clinical indication Comment [facility] 02 Comment:NEGATIVE FOR INTRAEP ITHELIAL LESION OR MALIGNANCY. Specimen adequacy: Comment [facility] 02 Comment: Satisfactory for evaluation. Endocervical and/or squamous metaplastic cells (endocervical component) are present. Clinician provided ICD10 Comment [facility] 02 Comment:Z01.419 Performed by Comment [facility] 02 Comment:Jenn Bassett, Cytote chnologist (ASCP) . . [facility] 02 Note: Comment [facility] 02 Comment: The Pap smear is a screening test designed to aid in the detection of premalignant and malignant conditions of the uterine cervix. It is not a diagnostic procedure and should not be used as the sole means of detecting cervical cancer. Both false-positive and false-negative reports do occur. Test methodology Comment [facility] 02 Comment: This liquid based ThinPrep(R) pap test was screened with the use of an image guided system. HPV Aptima Negative Negative [facility] - 01 Comment: This nucleic acid amplification test detects fourteen high-risk HPV types (16,18,31,33,35,39,45,51,52,56,58,59,66,68) without differentiation. HPV Genotype Reflex Comment [facility] 02 Comment:Criteria not met, HP V Genotype not performed. Thin prep-Endocervical 07/10/2024 3:52 PM AUXILIARY OPERATOR 07/10/2024 Narrative [facility] - 07/20/2024 8:08 AM AUXILIARY OPERATOR Performed at: - [facility] [address] [id number] Cake Washer: Lulú Gonsalez MD, Phone: [phone] Performed at: - [facility] [address] [id number] Cake Washer: Lulú Gonsalez MD, Phone: [phone] Aria Silveira [facility] LAB CYTOLOGY ORDERABLES Final Re sult [facility] LAB BINU 02 [facility] - 01 from Last 3 Months or Most Recently Relevant to Health Maintenance Insurance [facility] CHOICE PLUS [facility] CHOICE PLUS CHOICE PLUS CHOICE PLUS Care Teams Deck Scaler Relationship Specialty Start Date End Date Darleen Donahue NP PCP - General Family Medicine 09/25/21
--- OUTSIDE RECORDS SUMMARY | 2024-10-30 14:00 | XMS_ITS | Clinical Summary ---
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 Phone Darleen Donahue NP Primary Care Provider [phone] Allergies No known active allergies Medications LORazepam [...] 10/08/2024 Assessment & Plan (10/19/2024 5:16 PM CHAPERON): ECG 12 lead Date/Time: 10/19/2024 5:13 PM Performed by: Darleen Donahue NP Authorized by: Darleen Donahue NP Comparison: not compared with previous ECG Previous ECG: no previous ECG available Rhythm: sinus rhythm Ectopy: infrequent PVCs Ectopy comments: pac Rate: tachycardic BPM: 101 QRS axis: normal ST Segments: ST segments normal T Waves: T waves normal Clinical impression: abnormal ECG Comments: Short VT syndrome Discontinue losartan. Start metoprolol xl once daily. Discussed EKG. Will refer to cardiology. She will monitor blood pressure and send me updates. Assessment & Plan (10/08/2024 1:00 PM CHAPERON): Start losartan 25mg Thrombocythemia 01/31/2023 Assessment & Plan (10/19/2024 5:18 PM CHAPERON): Has new patient appointment with hematology scheduled this month Assessment & Plan (01/31/2023 1:26 PM CDT): History of elevated platelets. Will repeat a CBC today. Depression with anxiety 06/30/2020 Assessment & Plan (10/19/2024 5:17 PM CHAPERON): Believes this is well controlled. Continue citalopram and lorazepam prn. She may increase lorazepam short term while having a little more stress. Assessment & Plan (10/08/2024 1:00 PM CHAPERON): Improved. Continue citalopram 40mg Assessment & Plan (09/06/2024 7:50 PM CHAPERON): Plan was to do increase citalopram to [...] weeks Assessment & Plan (09/02/2023 3:41 PM CHAPERON): Psychological condition is improving with treatment continue [...] physical Assessment & Plan (07/30/2022 6:50 PM CHAPERON): Stable on current medication. Continue lorazepam prn and citalopram daily as ordered. May follow up in 6 months Assessment & Plan (01/29/2022 10:04 AM CDT): Stable on current medication. Continue citalopram as ordered. May follow up in 6 months Assessment & Plan (07/11/2021 9:45 AM CHAPERON): Stable on current medication. Continue citalopram 20 [...] discuss Assessment & Plan (07/27/2020 3:21 PM CHAPERON): Depression is improved. Will continue on citalopram 20 mg once daily. She has not used lorazepam but may use it p.r.n. for anxiety. Will have her follow-up in 6 months for recheck but encouraged to call in the interim if needed for any problems or concerns Assessment & Plan (07/03/2020 9:59 PM CHAPERON): Discussed starting a medication and pt is [...] 06/30/2020 Assessment & Plan (09/06/2024 7:51 PM CHAPERON): -Recommended: Healthy, prudent diet. 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 --Continue routine dental and vision visits --Immunizations reviewed and offered - utd -Routine labs/ screenings ordered- ordered. Assessment & Plan (07/11/2021 9:45 AM CHAPERON): -Recommended: Healthy diet. Avoiding junk food/fast food. -30 minutes of exercise most days of the week. Increase to 45 minutes for weight loss. Immunizations: Up to date getting COVID booster later today increase physical activity, bring BP log to office visit, continue present plan, routine labs ordered, call if any problems Follow-up in 6 months. Assessment & Plan (07/03/2020 9:59 PM CHAPERON): Labs as ordered. Will have her follow-up in 1 month Class 3 severe obesity due t o excess calories with serious comorbidity and body mass index (BMI) of 45.0 to 49.9 in adult 03/16/2019 Assessment & Plan (09/06/2024 7:50 PM CHAPERON): BMI Follow-up includes: nutrition counseling and exercise counseling. Assessment & Plan (09/02/2023 3:40 PM CHAPERON): Has started exercising again. BMI Follow-up includes: exercise counseling. Assessment & Plan (01/31/2023 1:26 PM CDT): BMI Follow-up includes: exercise counseling. Assessment & Plan (07/30/2022 6:50 PM CHAPERON): BMI Follow-up includes: exercise counseling. Assessment & Plan (01/29/2022 10:04 AM CDT): BMI Follow-up includes: exercise counseling. Assessment & Plan (07/03/2020 9:59 PM CHAPERON): BMI Follow-up includes: exercise counseling. Assessment & Plan (03/16/2019 9:14 PM CDT): Unchanged. Encouraged patient to decrease weight, increase daily exercise, and modify diet. Resolved Problems Problem Noted Date Diagnosed Date Resolved Date Elevated blood-pressure read ing, without diagnosis of hypertension 09/02/2024 10/19/2024 Assessment & Plan (09/06/2024 7:49 PM CHAPERON): I asked her to monitor blood pressure outside of the office. We are going to have her return in 1 month for med recheck and will recheck blood pressure at that time as well Encounters Date Type Department Care Team Description 10/30/2024 Results Follow-Up [facility] [address] [place] [address] Medical Office [facility] [address] [place] [address] Keely Cisse RN 10/28/2024 1:00 PM CDT Office Visit [facility] [address] [place] [address] Office [facility] [address] [place] [address] Jorgito Schwartz MD Thrombocythemia (Primary Dx); Thrombocytosis; Other fatigue 10/28/2024 12:30 PM CDT Lab [facility] [address] [facility] [address] [place] [address] Thrombocytosis (Primary Dx); Other fatigue; Thrombocythemia 10/19/2024 3:30 PM CHAPERON Office Visit [facility] Primary Care at [address] [address] Darleen Donahue NP Tachycardia (Primary Dx); Short VT-normal QRS complex syndrome; Hypertension, essential; Depression with anxiety; Thrombocythemia 10/15/2024 Telephone [facility] Primary Care at [address] [address] Darleen Donahue NP Med Refill 10/14/2024 4:48 PM CHAPERON - 10/14/2024 6:04 PM CHAPERON Emergency [facility] Emergency Department [address] [place] [address] Hypertension, unspecified type (Primary Dx) Discharge Disposition: Discharge to home or self care 10/14/2024 Nurse Triage [facility] Primary Care at [address] [address] Darleen Donahue WINE MAKER 10/12/2024 Nurse Triage [facility] Primary Care at [address] [address] Darleen Donahue WINE MAKER 10/08/2024 12:30 PM CHAPERON Office Visit [facility] Primary Care at [address] [address] Darleen Donahue NP Depression with anxiety (Primary Dx); Hypertension, essential; Thrombocytosis 09/04/2024 Nurse Triage [facility] Primary Care at [address] [address] Darleen Donahue WINE MAKER 09/02/2024 4:00 PM CHAPERON Office Visit [facility] Primary Care at [address] [address] Darleen Donahue NP Annual physical exam (Primary Dx); Depression with anxiety; Elevated blood-pressure reading, without diagnosis of hypertension; Class 3 severe obesity due to excess calories with serious comorbidity and body mass index (BMI) of 45.0 to 49.9 in adult (HCC) 09/02/2024 3:18 PM CHAPERON - 09/02/2024 11:59 PM CHAPERON Hospital Encounter [address] [address] Thyroid disorder screen; Lipid screening; Screening for metabolic disorder; Screening for deficiency anemia; Screening for diabetes mellitus Discharge Disposition: Discharge to home or self care 09/02/2024 3:15 PM CHAPERON Lab [facility] Outpatient Lab at [address] [address] Healthcare maintenance (Primary Dx); Morbid obesity with BMI of 40.0-44.9, adult ([facility]) 09/02/2024 Orders Only [facility] Primary Care at [address] [address] Darleen Donahue NP Screening for deficiency anemia (Primary Dx); Screening for metabolic disorder; Lipid screening; Thyroid disorder screen; Screening for diabetes mellitus 09/02/2024 Telephone [facility] Primary Care at [address] [address] Darleen Donahue NP Medical Question/Miscellaneous 08/04/2024 [facility] [address] [place] [address] [place] [phone] Sandra Abarca MA Request For Order(s) from Last 3 Months Immunizations Immunization Administration Dates Next Due Influenza, Quadrivalent, Spl it, Preservative Free, Intramuscular 05/13/2023,07/19/2022 Influenza, Trivalent, Cell Culture-based MDCK, Preservative Free, Antibiotic Free, Intramuscular 08/09/2024 Influenza, Trivalent, IM (MDV) 06/23/2021 Influenza, Unspecified 05/13/2023,2020,06/30/2020(Defer red: Patient Refused) Lili SARS-CoV-2 Monovalen t Vaccination (12+ YRS) 10/07/2020,09/08/2020 PPD TEST 07/21/2018 Pfizer SARS-CoV-2 Monovalent Vaccination (12+ Yrs) PURPLE 07/11/2021 Tdap 04/04/2014 Surgical History Surgery Date Site/Laterality Comments NO PAST SURGERIES Medical History Medical History Date Comments Irregular periods probable PCOS Depression 2002 PCOS (polycystic ovarian syndrome) 2016 Anxiety 2019 Clotting disorder 06/2020 Menstrual problem 06/2020 Thrombocytosis Family History Medical History Relation Name Comments Obesity Brother 1 Rajeev Obesity Brother 2 Rajeev Diabetes Father Sidney Hypertension Father Sidney Obesity Father Sidney Mental illness Father's Brother 1 Edwin Mental illness Father's Brother 2 Edwin Alcohol abuse Maternal Grandfather Ha Hypertension Maternal Grandfather Ha Obesity Maternal Grandfather Ha Clotting disorder Maternal Grandmother Pily Diabetes Maternal Grandmother Pily Diabetes type II Maternal Grandmother Pily Hypertension Maternal Grandmother Pily Miscarriages / Stillbirths Maternal Grandmother Pily Stroke Maternal Grandmother Pily Cancer Mother Leigh Endometrial cancer Mother Leigh Hypertension Mother Leigh Obesity Mother Leigh Clotting disorder Mother's Brother 1 Edward Cancer Mother's Brother 2 Ulises, colon cancer 2021 Clotting disorder Mother's Brother 3 Edward Other Mother's Sister 1 MTHFR defi ciency; several MA's and cousins. Cancer Mother's Sister 2 Geovanna, leukmia 06/2024 Cancer Mother's Sister 3 Mari, cancer b rain 2016 Cancer Paternal Grandfather Mother, Pat ernal Grandfather, paternal grandmother ? type; COD Hypertension Paternal Grandfather Mother, Pat ernal Grandfather, paternal grandmother Other cancer Paternal Grandfather Mother, Pat ernal Grandfather, paternal grandmother ? spinal; COD Breast cancer Paternal Grandmother Tahmina Depression Paternal Grandmother Tahmina Hypertension Paternal Grandmother Tahmina Mental illness Paternal Grandmother Tahmina Ovarian cancer Paternal Grandmother Tahmina Relation Name Status Comments Brother 1 Rajeev Brother 2 Rajeev Alive Father Sidney Father's Brother 1 Edwin Father's Brother 2 Edwin Alive Maternal Grandfather Ha Maternal Grandmother Pily Mother Leigh Mother's Brother 1 Edward Mother's Brother 2 Ulises, colon cancer 2021 Mother's Brother 3 Edward Alive Mother's Sister 1 Mother's Sister 2 Geovanna, leukmia 06/2024 Mother's Sister 3 Mari, cancer brain 2016 Paternal Grandfather Mother, Paternal Gr andfather, paternal grandmother Paternal Grandmother Tahmina Social History Tobacco Use Types Packs/Day Years [...] on file Legal Sex Female 7:35 PM CHAPERON Gender Identity Not on file Sexual Orientation Straight 01/18/2020 8: 14 AM CDT 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 Not on file Not on file Not on fi le Obstetrics History Para Term AB IAB SAB Ectopic Multiple Livin g Live Births 1 0 0 0 1 1 0 0 0 0 0 Date Outcome GA Total Labor Labor/2nd/3rd Weight Sex Type Anes PTL Eleanor A1 A5 Name Clin IAB Last Filed Vital Signs Vital Sign Reading [...] 10/28/2024 12:38 PM CDT Plan of Treatment Health Maintenance Due Date Last Done Comments Hepatitis C Screening 1986 Hepatitis B Screening 2004 DTaP/Tdap/Td Vaccine (2 - Td or Tdap) 04/04/2024 04/04/2014 Cervical Cancer Screening 07/10/20252023, 07/05/2023, 02/20/2022, Additional history exists Depression Screening 07/10/2025 07/10/2024, 09/02/2023, 07/05/2023, Additional history exists Regular Well Visit/Exam 18-64 09/02/2025 09/02/2024, 07/10/2024, 09/02/2023, Additional history exists Covid-19 Vaccine Completed 08/09/2024, , 07/19/2022, Additional history exists Influenza Vaccine Completed 08/09/2024, , 05/13/2023, Additional history exists HPV Vaccines Aged Out No longer eligi ble based on patient's age to complete this topic Pneumococcal vaccine <65 Aged Out No longer eligible based on patient's age to complete this topic Varicella Vaccines Discontinued Procedures Procedure Name Priority Date/Time Associated Diagnosis [...] Thrombocytosis ECG 12-LEAD Routine 10/19/2024 5:[address] HEAD WO CONTRAST ED 10/14/2024 2 :56 PM CHAPERON EGFR STAT 10/14/2024 11:56 AM CHAPERON DIFFERENTIAL AUTO STAT 10/14/2024 11: 56 AM CHAPERON COMPREHENSIVE METABOLIC PANEL STAT 10/14/2024 11:56 AM CHAPERON CBC WITH AUTO DIFFERENTIAL STAT 10/14/2024 11:56 AM CHAPERON EGFR Routine 09/02/2024 3:18 PM CHAPERON Screening for metabolic disorder DIFFERENTIAL AUTO Routine 09/02/2024 3:1 8 PM CHAPERON Screening for deficiency anemia HEMOGLOBIN A1C Routine 09/02/2024 3:18 PM CHAPERON Screening for diabetes mellitus CBC WITH AUTO DIFFERENTIAL Routine 09/02/2024 3:18 PM CHAPERON Screening for deficiency anemia COMPREHENSIVE METABOLIC PANEL Routine 09/02/2024 3:18 PM CHAPERON Screening for metabolic disorder LIPID PANEL Routine 09/02/2024 3:18 PM CHAPERON Lipid screening THYROID FUNCTION CASCADE Routine 09/02/2024 3:18 PM CHAPERON Thyroid disorder screen PAP AND HPV, REFLEX TO HPV GENOTYPES Routine 07/10/2024 3:52 PM CHAPERON Well woman exam from Last 3 Months or Most Recently Relevant to Health Maintenance Results * Differential, auto (10/28/2024 12:20 PM CDT) Neutrophil abs 5.1 1.5 - 6.5 K/cumm Comment:Testing performed by : [facility] [address], Medical Office [address], [place] [address] Imm gran abs 0.0 0.0 - 0.1 K/cumm [facility] ([place]) Comment:Testing performed by : [facility] [address], Medical Office [address], [place] [address] Lymphocyte abs 2.4 0.8 - 3.3 K/cumm [facility] ([place]) Comment:Testing performed by : [facility] [address], Medical Office [address], [place] [address] Monocyte abs 0.4 0.2 - 0.8 K/cumm [facility] ([place]) Comment:Testing performed by : [facility] [place], [address], Medical Office [address], [place] [address] Eosinophil abs 0.1 0.0 - 0.5 K/cumm [facility] ([place]) Comment:Testing performed by : [facility] [address], Medical Office [address], [place] [address] Basophil abs 0.0 0.0 - 0.1 K/cumm [facility] ([place]) Comment:Testing performed by : [facility] [address], Medical Office [facility] [address], [place] [address] Neutrophil pct 63.4 % [facility] ([place]) Comment: Interpretive Data Percent cell count reference ranges are not reported, since discordance with absolute values may lead to misinterpretation of CBC data. Current Interpretive Data was last revised on 2022. Testing performed by: [facility] [address], Medical Office [facility] [address], [place] [address] Imm gran pct 0.1 % [facility] ([place]) Comment: Interpretive Data Percent cell count reference ranges are not reported, since discordance with absolute values may lead to misinterpretation of CBC data. Current Interpretive Data was last revised on 2022. Testing performed by: [facility] [address], Medical Office [facility] [address], [place] [address] Lymphocyte pct 29.9 % [facility] ([place]) Comment: Interpretive Data Percent cell count reference ranges are not reported, since discordance with absolute values may lead to misinterpretation of CBC data. Current Interpretive Data was last revised on 2022. Testing performed by: [facility] [address], Medical Office [address], [place] [address] Monocyte pct 5.5 % [facility] ([place]) Comment: Interpretive Data Percent cell count reference ranges are not reported, since discordance with absolute values may lead to misinterpretation of CBC data. Current Interpretive Data was last revised on 2022. Testing performed by: [facility] [address], Medical Office [address], [place] [address] Eosinophil pct 0.9 % [facility] ([place]) Comment: Interpretive Data Percent cell count reference ranges are not reported, since discordance with absolute values may lead to misinterpretation of CBC data. Current Interpretive Data was last revised on 2022. Testing performed by: [facility] [address], Medical Office [address], [place] [address] Basophil pct 0.2 % [facility] ([place]) Comment: Interpretive Data Percent cell count reference ranges are not reported, since discordance with absolute values may lead to misinterpretation of CBC data. Current Interpretive Data was last revised on 2022. Testing performed by: [facility] [address], Medical Office [facility] [address] [facility] [address], [place] [address] Blood 10/28/2024 12:2 0 PM CDT 10/28/2024 12:25 PM CDT us Jorgito Schwartz MD LAB BLOOD ORDERABLES Final Re sult [facility] ([place]) [address] [facility] [place] [address] * (ABNORMAL) Iron profile w/ IBC (10/28/2024 12:20 PM CDT) Iron 149(H) 35 - 145 mcg/dL Comment:Testing performed by : [facility], [facility], [place], [address] TIBC 450(H) 250 - 400 mcg/dL [facility] ([place]) Comment:Testing performed by : [place], [address] Transferrin saturation 33 20 - 50 % [facility] ([place]) Comment:Testing performed by : [place], [address] Blood 10/28/2024 12:2 0 PM CDT 10/28/2024 3:14 PM CDT us Jorgito Schwartz MD LAB BLOOD ORDERABLES Final Re sult [facility] ([place]) [address] [facility] [place] [address] * (ABNORMAL) CBC with auto differential (10/28/2024 12:20 PM CDT) WBC 8.1 3.8 - 9.9 K/cumm Comment:Testing performed by : [facility] [address], Medical Office [address], [place] [address] Hgb 12.6 11.9 - 15.5 g/dL [facility] ([place]) Comment:Testing performed by : [facility] [address], Medical Office [address], [place] [address] Hct 37.3 35.6 - 45.5 % [facility] ([place]) Comment:Testing performed by : [facility] [address], Medical Office [address], [place] [address] Plt 429(H) 150 - 400 K/cumm [facility] ([place]) Comment:Testing performed by : [facility] [address], Medical Office [facility] [address], [place] [address] MPV 8.6(L) 9.1 - 12.3 fL [facility] ([place]) Comment:Testing performed by : [facility] [address], Medical Office [address], [place] [address] RBC 4.27 3.90 - 5.20 M/cumm [facility] ([place]) Comment:Testing performed by : [facility] [address], Medical Office [address], [place] [address] MCV 87.4 81.3 - 96.4 fL [facility] ([place]) Comment:Testing performed by : [facility] [address], Medical Office [address], [place] [address] MCH 29.5 27.1 - 33.3 pg [facility] ([place]) Comment:Testing performed by : [facility] [address], Medical Office [address], [place] [address] MCHC 33.8 32.3 - 35.7 g/dL [facility] ([place]) Comment:Testing performed by : [facility] [address], Medical Office [facility] [address], [place] [address] RDW CV 12.6 11.1 - 14.9 % [facility] ([place]) Comment:Testing performed by : [facility] [address], Medical Office [facility] [address], [place] [address] RDW SD 40.4 35.7 - 48.1 fL [facility] ([place]) Comment:Testing performed by : [facility] [address], Medical Office [facility] [address], [place] [address] NRBC abs Not Measured 0.00 - 0.01 K/cumm [facility] SM[facility] ([place]) Comment:Testing performed by : [facility] [address], Medical Office [facility] [address], [place] [address] Blood 10/28/2024 12:2 0 PM CDT 10/28/2024 12:25 PM CDT us Jorgito Schwartz MD LAB BLOOD ORDERABLES Final Re sult [facility] ([place]) [address] [facility] [place] [address] * (ABNORMAL) Erythrocyte sedimentation rate (10/28/2024 12:20 PM CDT) Erythrocyte sedimentation rate 33(H) 1 - 20 mm/hr Comment:Testing performed by : [facility], [facility], [place], [address] Blood 10/28/2024 12:2 0 PM CDT 10/28/2024 3:27 PM CDT Jorgito Schwartz MD LAB BLOOD ORDERABLES Final Re sult [facility] ([place]) [address] [facility] [place] [address] * (ABNORMAL) CRP (acute phase) (10/28/2024 12:20 PM CDT) Pathologist [facility] CRP 15.1(H) <=10.0 mg/L Comment:Testing performed by : [facility], [place], [address] Blood 10/28/2024 12:2 0 PM CDT 10/28/2024 3:14 PM CDT Jorgito Schwartz MD LAB BLOOD ORDERABLES Final Re sult Performing Organization Address City/[facility]/ZIP Co de Phone Number [facility] ([place]) [address] [place] [address] [place] [address] * Ferritin (10/28/2024 12:20 PM CDT) Pathologist [facility] Ferritin 49 15 - 150 ng/mL Comment:Testing performed by : [facility], [place], [address] Blood 10/28/2024 12:2 0 PM CDT 10/28/2024 3:14 PM CDT Jorgito Schwartz MD LAB BLOOD ORDERABLES Final Re sult Performing Organization Address [facility] Co de Phone Number [facility] ([place]) [address] [place] [address] [place] [address] * (ABNORMAL) ECG 12-LEAD (10/19/2024 5:13 PM CHAPERON) Narrative Darleen Donahue NP - 10/19/2024 5:13 PM CHAPERON Darleen Donahue NP 10/19/2024 5:19 PM ECG [...] normal Clinical impression: abnormal ECG Comments: Short VT syndrome Darleen Donahue WINE MAKER ECG ORDERABLES Edited Result - Final * CT Head WO Contrast (10/14/2024 2:56 PM CHAPERON) Anatomical Region Laterality Modality Head and Neck N/A Computed Tomogra phy 10/14/2024 3:15 PM CHAPERON Narrative 10/14/2024 3:16 PM CHAPERON EXAM DESCRIPTION: CT HEAD WO CONTRAST REASON [...] by Cristobal Eaton M.D. JR: Report ID: [id number] Reading Location: [place] [address] Procedure Note Cristobal Eaton MD - 10/14/2024 [...] by Cristobal Eaton M.D. JR: Report ID: [id number] Reading Location: [place] [address] PROCEDURES Final Result * eGFR (10/14/2024 11:56 AM CHAPERON) eGFR >90 >=60 mL/min/1. 73 m2 Comment: [...] reviewed 2021. Blood 10/14/2024 11:5 6 AM CHAPERON 10/14/2024 12:08 PM CHAPERON Carley Joshua MD LAB BLOOD ORDERABLES Diana l Result BASSEM SMITH RIVERTON) 1 [facility] [place] [address] * (ABNORMAL) Differential, auto (10/14/2024 11:56 AM CHAPERON) Neutrophil abs 8.1(H) 1.5 - 6.5 K/cumm [...] Neutrophil pct 70.3 % [facility] (YASMIN) Comment: Interpretive [...] on 2017. Blood 10/14/2024 11:5 6 AM CHAPERON 10/14/2024 12:08 PM CHAPERON Carley Joshua MD LAB BLOOD ORDERABLES Diana l Result [facility] ([facility]) 1 [facility] [place] [address] * (ABNORMAL) CBC with auto differential (10/14/2024 11:56 AM CHAPERON) WBC 11.5(H) 3.8 - 9.9 K/cumm Hgb [...] [facility] ([facility]MIN) Blood 10/14/2024 11:5 6 AM CHAPERON 10/14/2024 12:08 PM CHAPERON us Carley Joshua MD LAB BLOOD ORDERABLES Diana l Result [facility] ([facility]) 1 [facility] [place] [address] * (ABNORMAL) Comprehensive metabolic panel (10/14/2024 11:56 AM CHAPERON) Pathologist [facility] Sodium 136 135 - 145 mmol/L Potassium, [...] S pecimen Blood 10/14/2024 11:5 6 AM CHAPERON 10/14/2024 12:08 PM CHAPERON us Carley Joshua MD LAB BLOOD ORDERABLES Diana healy Result [facility] 1 [facility] [place] [address] * eGFR (09/02/2024 3:18 PM CHAPERON) eGFR >90 >=60 mL/min/1. 73 m2 Comment: [...] last reviewed 2021. Blood 09/02/2024 3:18 PM CHAPERON 09/02/2024 9:49 PM CHAPERON us Darleen Donahue NP LAB BLOOD ORDERABLES Final Re sult [facility] [address] [place] [address] * Differential, auto (09/02/2024 3:18 PM CHAPERON) Pathologist [facility] Neutrophil abs 5.7 1.5 - 6.5 K/cumm Imm gran abs 0.0 0.0 - 0.1 K/cumm [facility] Lymphocyte abs 2.5 0.8 - 3.3 K/cumm [facility] Monocyte abs 0.8 0.2 - 0.8 K/cumm [facility] Eosinophil abs 0.1 0.0 - 0.5 K/cumm [facility] Basophil abs 0.0 0.0 - 0.1 K/cumm [facility] Neutrophil pct 62.7 % [facility] Comment: Interpretive Data Percent cell count reference ranges are not reported, since discordance with absolute values may lead to misinterpretation of CBC data. Current Interpretive Data was last revised on 2017. Imm gran pct 0.3 % [facility] Comment: Interpretive Data Percent cell [...] on 2017. Monocyte pct 8.4 % [facility] Comment: Interpretive Data Percent cell [...] revised on 2017. Basophil pct 0.2 % [facility] Comment: Interpretive Data Percent cell count reference ranges are not reported, since discordance with absolute values may lead to misinterpretation of CBC data. Current Interpretive Data was last revised on 2017. Blood 09/02/2024 3:18 PM CHAPERON 09/02/2024 8:00 PM CHAPERON Darleen Donahue NP LAB BLOOD ORDERABLES Final Re sult Performing Organization Address [facility] Co de Phone Number BASSEM [address] [facility] [place] [address] * Thyroid Function [place] (09/02/2024 3:18 PM CHAPERON) TSH 2.07 0.30 - 4.20 mcIUnit/mL Blood 09/02/2024 3:18 PM CHAPERON 09/02/2024 8:00 PM CHAPERON Darleen Donahue NP LAB BLOOD ORDERABLES Final Re sult Performing Organization Address City/[facility] Co de Phone Number BASSEM SARMIENTO [address] [facility] [place] [address] * (ABNORMAL) CBC with auto differential (09/02/2024 3:18 PM CHAPERON) [facility] WBC 9.0 3.8 - 9.9 K/cumm Hgb 12.7 11.9 - 15.5 g/dL [facility] Hct 38.7 35.6 - 45.5 % [facility] Plt 465(H) 150 - 400 K/cumm [facility] MPV 9.2 9.1 - 12.3 fL [facility] RBC 4.31 3.90 - 5.20 M/cumm [facility] MCV 89.8 81.3 - 96.4 fL [facility] MCH 29.5 27.1 - 33.3 pg [facility] MCHC 32.8 32.3 - 35.7 g/dL [facility] RDW CV 13.1 11.1 - 14.9 % [facility] RDW SD 43.1 35.7 - 48.1 fL [facility] NRBC abs 0.00 0.00 - 0.01 K/cumm [facility] Blood 09/02/2024 3:18 PM CHAPERON 09/02/2024 8:00 PM CHAPERON Darleen Donahue NP LAB BLOOD ORDERABLES Final Re sult [facility] [address] Department [place] [address] * Hemoglobin A1c (09/02/2024 3:18 PM CHAPERON) [facility] Hgb A1C 5.6 4.0 - 5.6 % Comment:Testing performed by : [facility], 1 [place]., [address] Estimated Average Glucose 114 mg/dL [facility] Comment: The ADA recommends reporting an estimated Average Glucose (eAG) with all Hemoglobin A1c results using the equation derived from a study of 507 normal and diabetic adults. Minority populations were underrepresented and children were not included. (Diabetes Care 2020; 43(S1): S66-S76). The eAG is not equivalent to a fasting glucose. Testing performed by: [facility], 1 [facility], [place]., [address] Blood 09/02/2024 3:18 PM CHAPERON 09/02/2024 8:00 PM CHAPERON us Darleen Donahue NP LAB BLOOD ORDERABLES Final Re sult [facility] [address] Department [place] [address] * (ABNORMAL) Lipid panel (09/02/2024 3:18 PM CHAPERON) Cholesterol 159 30 - 199 mg/dL Comment: [...] revised on 2018. HDL 63 >=40 mg/dL [facility] Comment: Interpretive Data Ages < or [...] 2018. LDL, calculated 65 <=129 mg/dL [facility] SARMIENT[facility] Comment: Interpretive Data Ages [...] NCEP Expert Panel. Circulation 2004;110:227 3. Adriano Holland et al. ALICE Cardiol. 2019December 17;5(5):540-548. doi: 10.1001/jamacardio.2020.0013 Current Interpretive Data was last revised on 2024. Non-HDL Cholesterol 96 mg/dL [facility] Comment: Interpretive Data Ages < [...] last revised on 2018. Chol/HDL ratio 3 [facility] Blood 09/02/2024 3:18 PM CHAPERON 09/02/2024 8:00 PM CHAPERON Darleen Donahue WINE MAKER LAB BLOOD ORDERABLES Final Re sult Performing Organization Address City/[facility]/ZIP Co de Phone Number [facility]SEM SARMIENTO [address] [address] [place] [address] * Comprehensive metabolic panel (09/02/2024 3:18 PM CHAPERON) Sodium 140 135 - 145 mmol/L Potassium, pl 3.9 3.3 - 4.9 mmol/L [facility] Chloride 103 97 - 110 mmol/L [facility] CO2 24 22 - 32 mmol/L [facility] Anion gap 13 2 - 15 mmol/L [facility] BUN 11 6 - 25 mg/dL [facility] Creatinine 0.67 0.60 - 1.10 mg/dL [facility] Glucose 122 70 - 199 mg/dL [facility] Comment: Interpretive Data Fasting glucose >/= 126 [...] Units/L [facility] Blood 09/02/2024 3:18 PM CHAPERON 09/02/2024 8:00 PM CHAPERON Darleen Donahue NP LAB BLOOD ORDERABLES Final Re sult Performing Organization Address City/[facility]/ZIP Co de Phone Number [facility] SARMIENT[facility] [address] Department [place] [address] * Pap and HPV, reflex to HPV Genotypes (07/10/2024 3:52 PM CHAPERON) Clinical indication Comment LAB BINU 02 Comment:NEGATIVE FOR INTRAEP ITHELIAL LESION OR MALIGNANCY. Specimen adequacy: Comment LAB BINU 02 Comment: Satisfactory for evaluation. Endocervical and/or squamous metaplastic cells (endocervical component) are present. Clinician provided ICD10 Comment LAB BINU 02 Comment:Z01.419 Performed by Comment LAB BINU 02 Comment:Jenn Bassett, Cytote chnologist (ASCP) . . LAB BINU 02 Note: Comment LAB IBNU 02 Comment: The Pap smear is a [...] system. HPV Aptima Negative Negative [facility] - Comment: This nucleic acid amplification test detects fourteen high-risk HPV types (16,18,31,33,35,39,45,51,52,56,58,59,66,68) without differentiation. HPV Genotype Reflex Comment LAB BINU 02 Comment:Criteria not met, HP V Genotype not performed. Thin prep-Endocervical 07/10/2024 3:52 PM CHAPERON 07/10/2024 Narrative [facility] - 07/20/2024 8:08 AM CHAPERON Performed at: - [facility] [id number] Diagnostics Sales Developer: Lulú Gonsalez MD, Phone: [phone] Performed at: - [facility] [id number] Diagnostics Sales Developer: Lulú Gonsalez MD, Phone: [phone] Aria Silveira WINE MAKER LAB CYTOLOGY ORDERABLES Final Re sult [facility] LAB BINU 02 [facility] - from Last 3 Months or Most Recently Relevant to Health Maintenance Insurance [facility]PPO Address: [place] [address] [employer] Address: [place] [phone] [employer] [facility] Address: [address] [place] [address] [facility] [employer] [facility] [employer]PPO Address: [place] [phone] Care Teams Farm Equipment Engine Mechanic Relationship Specialty Start Date End Date Darleen Donahue NP PCP - General Family Medicine 09/25/21
--- OUTSIDE RECORDS SUMMARY | 2024-10-30 14:00 | XMS_ITS | Encounter Summary ---
Author Organization [facility] Address [address] [place] [address] Phone Care Team Providers Care Potato Loader Name Role Phone Darleen Donahue NP Primary Care Provider [phone] Encounter Details Date Type Department Care Team (Late st Contact Info) Description 10/30/2024 Results Follow-Up [facility] Oncology [address] [place] [address] [phone] Keely Cisse, MARITZA Social History Tobacco Use Types Packs/Day Years Used Date Smoking Tobacco: Never Smokeless Tobacco: Never Alcohol Use Standard Drinks/Week [...] on file Legal 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
--- OUTSIDE RECORDS SUMMARY | 2024-10-30 14:00 | XMS_ITS | Encounter Summary ---
Author Organization [facility] Address [address] [place] [address] Phone Care Team Providers Care Staffing Director Name Role Phone No, Physician Primary Care Provider [phone] Claire Mccrary DO Primary Care Provider [phone] Darelen Donahue NP Primary Care Provider [phone] Encounter Details Date Type Department Care Team (Late st Contact Info) Description 08/09/2017 Orders Only [facility] ProviderDanielle MD [address] [place] [address] Social History Tobacco Use Types Packs/Day Years Used Date Smoking Tobacco: Never Smokeless Tobacco: Never Alcohol Use Standard Drinks/Week Comments Yes 0 (1 standard drink = 0.6 oz pur e alcohol) Comments Unknown Sex and Gender Information Value Date Recorded Sex Assigned at Not on file Legal Sex Female 7:35 PM DISPENSARY ATTENDANT Gender Identity Not on file Sexual Orientation Straight 01/18/2020 8: 14 AM CDT 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 us Historical Provider LAB CYTOLOGY ORDERABLES F inal Result documented in this encounter Visit Diagnoses Not on filedocumented in this encounter Additional Health Concerns Infection Onset Date Last Indicated Resolved Time COVID: Suspected 10/06/2022 10/06/2022 10/06/2022 9:32 AM DISPENSARY ATTENDANT COVID: Suspected 08/02/2023 08/02/2023 08/02/2023 12:41 PM DISPENSARY ATTENDANT COVID19 08/02/2023 08/02/2023 08/12/2023 3:05 AM DISPENSARY ATTENDANT COVID: Recovered Comment:Added based on recent COVID infection. 08/12/2023 09/02/2023 11/10/2023 3:05 AM C DT COVID: Suspected 10/18/2023 10/18/2023 10/18/2023 9:12 AM DISPENSARY ATTENDANT documented as of this encounter Care Teams Staffing Director Relationship Specialty Start Date End Date No, Physician PCP - General 03/26/17 03/15/19 Claire Mccrary DO PCP - General Family Medicine 03/16/19 09/24/21 Darleen Donahue NP PCP - General Family Medicine 09/25/21 documented as of this encounter
== END 2024-10-30 16:36 | disposition home or self-care (01) ==
PROVIDERS: Emergency Provider Student in an Organized Health Care Education/Training Program; PCP Nurse Practitioner Family
DX: I10 Essential (primary) hypertension (principal); D75.839 Thrombocytosis, unspecified
CPT/HCPCS: 36415; 70450; 71046; 80053; 85025; 93005; 99284